=== PATIENT | male | born 1985 | race American Indian/Alaskan Native ===

== ENCOUNTER 2017-12-04 00:30 | Emergency (ER) | payer SELFPAY ==
[2017-12-04 01:48] LABS: BUN/Creatinine Ratio 18; Blood Urea Nitrogen 14 mg/dL (9-20); Calcium 9.6 mg/dL (8.4-10.2); Hemolysis Index 13
[2017-12-04 01:49] LABS: Bilirubin,Urine NEG (Negative); Blood,Urine NEG (Negative); Color,Urine Yellow (Yellow); Mucus,Urine FEW /HPF; Protein,Urine <15 mg/dL mg/dL (Negative); Urobilinogen,Urine < 2.0 mg/dL (<2.0)
[2017-12-04] MEDS ORDERED: HumuLIN R IV ONE (01:54)
[2017-12-04] MEDS ORDERED: NACL 0.9% 1000 ML 1,000 ML IV ONE (01:54)
[2017-12-04] MEDS ORDERED: ZOFRAN IV ONE (01:56)
--- NOTE | 2017-12-04 01:59 | Emergency Department Report ---
ED General Adult HPI - General Chief complaint: Hyperglycemia Stated complaint: POSS HIGH BS Time Seen by Provider: 12/04/17 01:51 Source: patient Mode of arrival: Ambulatory Limitations: No Limitations - History of Present Illness Initial comments: Patient is a 32 years old male with history of diabetes and hypertension. Patient presented to the ER complaining of high blood sugar. Patient stated that he has been checking his blood sugar and its in the 400s. Patient is taking Levemir and Humalog. Patient denied any fever, chest pain, abdominal pain. He stated that his been having some cough and increased urinary frequency. - Related Data Home Medications Medication Instructions Recorded Confirmed Last Taken AtorvaSTATin [Lipitor] 1 tab PO DAILY 12/04/17 12/04/17 Unknown HumaLOG VIAL 10 unit SQ TID 12/04/17 12/04/17 Unknown Januvia 100 mg PO DAILY 12/04/17 12/04/17 Unknown Levemir (Nf) 30 unit SQ HS 12/04/17 12/04/17 Unknown Lisinopril 20 mg PO DAILY 12/04/17 12/04/17 Unknown amLODIPine 5 mg PO DAILY 12/04/17 12/04/17 Unknown Allergies Allergy/AdvReac Type Severity Reaction Status Date / Time No Known Allergies Allergy Unverified 12/04/17 00:47 ED Review of Systems ROS: Stated complaint: POSS HIGH BS Other details as noted in HPI Comment: All other systems reviewed and negative Constitutional: denies: chills, fever Eyes: denies: eye pain Respiratory: cough. denies: orthopnea, shortness of breath, SOB with exertion, SOB at rest, wheezing Cardiovascular: denies: chest pain, palpitations, dyspnea on exertion, orthopnea Gastrointestinal: nausea. denies: abdominal pain, vomiting, diarrhea, constipation, hematemesis, melena, hematochezia Musculoskeletal: denies: back pain Neurological: denies: headache, weakness, numbness, paresthesias, confusion ED Past Medical Hx - Past Medical History Hx Hypertension: Yes Hx Diabetes: Yes Additional medical history: Morbid Obesity - Surgical History Additional Surgical History: Pilinodal Abscess - Social History Smoking Status: Never Smoker Substance Use Type: None - Medications Home Medications: Home Medications Medication Instructions Recorded Confirmed Last Taken Type AtorvaSTATin [Lipitor] 1 tab PO DAILY 12/04/17 12/04/17 Unknown History HumaLOG VIAL 10 unit SQ TID 12/04/17 12/04/17 Unknown History Januvia 100 mg PO DAILY 12/04/17 12/04/17 Unknown History Levemir (Nf) 30 unit SQ HS 12/04/17 12/04/17 Unknown History Lisinopril 20 mg PO DAILY 12/04/17 12/04/17 Unknown History amLODIPine 5 mg PO DAILY 12/04/17 12/04/17 Unknown History ED Physical Exam - General Limitations: No Limitations General appearance: alert, in no apparent distress - Head Head exam: Present: atraumatic, normocephalic, normal inspection - Eye Eye exam: Present: normal appearance, PERRL - ENT ENT exam: Present: normal exam, normal orophraynx, mucous membranes moist - Neck Neck exam: Present: normal inspection, full ROM. Absent: tenderness, meningismus, lymphadenopathy, thyromegaly - Respiratory Respiratory exam: Present: normal lung sounds bilaterally. Absent: respiratory distress, wheezes, rales, rhonchi, stridor, chest wall tenderness, accessory muscle use, decreased breath sounds, prolonged expiratory - Cardiovascular Cardiovascular Exam: Present: regular rate, normal rhythm, normal heart sounds - GI/Abdominal GI/Abdominal exam: Present: soft, normal bowel sounds. Absent: distended, tenderness, guarding, rebound, rigid, organomegaly, mass, bruit, pulsatile mass - Extremities Exam Extremities exam: Present: normal inspection, full ROM, normal capillary refill. Absent: pedal edema, calf tenderness - Back Exam Back exam: Present: normal inspection, full ROM. Absent: CVA tenderness (R), CVA tenderness (L), muscle spasm, paraspinal tenderness, vertebral tenderness, rash noted - Neurological Exam Neurological exam: Present: alert, oriented X3, CN II-XII intact, normal gait, reflexes normal - Skin Skin exam: Present: warm, intact, normal color ED Course Vital Signs 12/04/17 12/04/17 00:41 03:01 Temperature 98.8 F Pulse Rate 88 Respiratory 18 16 Rate Blood Pressure 154/96 O2 Sat by Pulse 97 97 Oximetry ED Medical Decision Making - Lab Data Result diagrams: 12/04/17 01:02 12/04/17 01:02 - Radiology Data Radiology results: report reviewed Referring Physician: NYLA ANGELO Patient Name: SALVADOR CHACON Date of : 1985 Sex: Male Report Date: 2017-12-04 Report Status: Finalized Findings [facility] [address] [place] [address] XRay Report Signed Patient: SALVADOR CHACON MR#: [id number] : 1985 Acct:[id number] Age/Sex: 32 / M ADM Date: 12/04/17 Loc: ED Attending Dr: Ordering Physician: NYLA ANEGLO Date of Service: 12/04/17 Procedure(s): XR chest 1V ap Accession Number(s): [id number] cc: NYLA ANGELO Fluoro Time In Minutes: FINAL REPORT PROCEDURE: XR CHEST 1V AP TECHNIQUE: Chest radiograph anteroposterior view. CPT 65009 HISTORY: cough COMPARISON: No prior studies are available for comparison. FINDINGS: Heart: Normal. Mediastinum/Vessels: Normal. Lungs/Pleural space: Lungs are expanded and clear. There are no infiltrates, effusions or pneumothoraces.. Bony thorax: No acute osseous abnormality. Life support devices: None. IMPRESSION: No acute cardiopulmonary abnormality. Transcribed By: CO Dictated By: MIKE MONTGOMERY MD Electronically Authenticated By: MIKE MONTGOMERY MD Signed Date/Time: 12/04/17244 DD/ 4 TD/TT: 12/04/17244 - Medical Decision Making Patient is a 32 years old male with history of diabetes and hypertension. Patient presented to the ER complaining of high blood sugar. Patient stated that he has been checking his blood sugar and its in the 400s. Patient is taking Levemir and Humalog. Patient denied any fever, chest pain, abdominal pain. He stated that his been having some cough and increased urinary frequency. Patient stated that he is feeling much better. I advised patient to follow up with his primary care physician in the next 2-3 days for adjustment of his insulin. Critical care attestation.: If time is entered above; I have spent that time in minutes in the direct care of this critically ill patient, excluding procedure time. ED Disposition Clinical Impression: Hyperglycemia due to type 2 diabetes mellitus Disposition: TO HOME OR SELFCARE Is pt being admited?: No Condition: Stable Instructions: Diabetes Mellitus Type 2 in Adults (ED) Referrals: PRIMARY CARE, [Primary Care Provider] - 3-5 Days
[2017-12-04 02:22] LABS: Basophils % (Auto) 0.3 % (0.0-1.8); Eosinophils # (Auto) 0.2 K/mm3 (0.0-0.4); Eosinophils % (Auto) 2.3 % (0.0-4.3); Hematocrit 42.9 % (35.5-45.6); Hemoglobin 14.8 gm/dl (11.8-15.2); Lymphocytes # (Auto) 2.5 K/mm3 (1.2-5.4); Lymphocytes % (Auto) 33.1 % (13.4-35.0); Mean Corpuscular HGB Conc 35 % (32-34); Mean Corpuscular Hemoglobin 28 pg (28-32); Mean Corpuscular Volume 82 fl (84-94); Monocytes # (Auto) 0.4 K/mm3 (0.0-0.8); Monocytes % (Auto) 4.8 % (0.0-7.3); Platelet Count 258 K/mm3 (140-440); Red Blood Count 5.24 M/mm3 (3.65-5.03); Red Cell Distribution Width 15.6 % (13.2-15.2)
--- NOTE | 2017-12-04 02:46 | XRay Report ---
FINAL REPORT PROCEDURE: XR CHEST 1V AP TECHNIQUE: Chest radiograph anteroposterior view. CPT 55698 HISTORY: cough COMPARISON: No prior studies are available for comparison. FINDINGS: Heart: Normal. Mediastinum/Vessels: Normal. Lungs/Pleural space: Lungs are expanded and clear. There are no infiltrates, effusions or pneumothoraces.. Bony thorax: No acute osseous abnormality. Life support devices: None. IMPRESSION: No acute cardiopulmonary abnormality.
[2017-12-04] MEDS ORDERED: TYLENOL ONE (04:28)
[2017-12-04] MEDS ORDERED: TYLENOL PO ONE (04:32)
[2017-12-04 04:37] VITALS: BP 121/70
== END 2017-12-04 04:50 | disposition home or self-care (01) ==
LOC: ED 00:30
DX: E11.65 Type 2 diabetes mellitus with hyperglycemia (principal); I10 Essential (primary) hypertension; E66.01 Morbid (severe) obesity due to excess calories
CPT/HCPCS: 36415; 71045; 80048; 81001; 82805; 82962; 85025; 96361; 96374; 96375; 99284; J2405; J7030; J1815